=== PATIENT | male | born 1960 | race Two or more races ===

== ENCOUNTER 2018-03-09 11:45 | Emergency (ER) | payer MEDICARE, MEDICAID ==
[~2018-03-09] VITALS: Ht 175.3 cm; Wt 74.0 kg
--- NOTE | 2018-03-09 11:55 | NUR ---
EKG 1149
[2018-03-09 12:35] LABS: BASOPHILS % (AUTO) 0.7 % (0-1); EOSINOPHILS # (AUTO) 0.2 X10'3 (0-0.9); EOSINOPHILS % (AUTO) 2.8 % (0-6); HEMATOCRIT 43.2 % (42.0-52.0); HEMOGLOBIN 14.3 g/dl (14.0-17.9); LYMPHOCYTES # (AUTO) 1.4 X10'3 (1.1-4.8); LYMPHOCYTES % (AUTO) 20.5 % (21-51); MEAN CORPUSCULAR HEMOGLOBIN 32.7 PG (27.0-31.0); MEAN CORPUSCULAR HGB CONC 33.2 % (33.0-36.5); MEAN CORPUSCULAR VOLUME 98.5 FL (78-98); MEAN PLATELET VOLUME 9.8 FL (7.4-10.4); MONOCYTES # (AUTO) 1.1 X10'3 (0-0.9); MONOCYTES % (AUTO) 15.4 % (2-12); NEUTROPHILS # (AUTO) 4.1 X10'3 (1.8-7.7); NEUTROPHILS % (AUTO) 60.6 % (42-75); PLATELET COUNT 148 X10'3 (140-440); RED BLOOD COUNT 4.38 X10'6 (4.70-6.10); WHITE BLOOD COUNT 6.9 X10'3 (4.5-11.0)
[2018-03-09 12:51] LABS: INR 1.1 INR; PARTIAL THROMBOPLASTIN TIME 30 SECONDS (22-32); PROTHROMBIN TIME 10.7 SECONDS (9.0-12.0)
[2018-03-09 13:05] LABS: ALANINE AMINOTRANSFERASE 28 U/L (12-78); ALBUMIN 2.8 G/DL (3.4-5.0); ALBUMIN/GLOBULIN RATIO 0.7 (1.1-1.5); ALKALINE PHOSPHATASE 91 IU/L (46-116); ANION GAP 6 (8-16); ASPARTATE AMINO TRANSFERASE 18 U/L (10-37); BILIRUBIN,TOTAL 0.3 MG/DL (0.1-1.0); BLOOD UREA NITROGEN 23 MG/DL (7-18); CALCIUM 9.1 MG/DL (8.5-10.1); CHLORIDE 104 MMOL/L (99-107); CREATININE 1.28 MG/DL (0.60-1.10); GLUCOSE 336 MG/DL (70-104); POTASSIUM 4.7 MMOL/L (3.5-5.1); SODIUM 139 MMOL/L (135-145); TOTAL CARBON DIOXIDE 29.2 MMOL/L (24-32); eGFR 58 ML/MIN
--- NOTE | 2018-03-09 13:19 | NUR ---
ASSUMED CARE OF PT FROM AISHA HENRY, PT IS RESTING QUIETLY ON GURNEY, RESP EVEN AND UNLABORED
[2018-03-09] MEDS ORDERED: PANT-47 PO (13:44)
--- NOTE | 2018-03-09 14:02 | NUR ---
REPORT GIVEN TO ELZA HENRY AT [facility], THEY WILL SEND A NON EMERGENCY SERVICES AMBULANCE DRIVER TO PICK PT UP, PT IS UNDER CONSERVATORSHIP AND RESIDED AT A HEALTH SYSTEM
[2018-03-09 14:27] VITALS: BP 119/80
== END 2018-03-09 14:33 | disposition home or self-care (01) ==
LOC: ER 11:46
DX: R10.13 Epigastric pain (principal); R07.9 Chest pain, unspecified; I10 Essential (primary) hypertension; E11.9 Type 2 diabetes mellitus without complications; F17.200 Nicotine dependence, unspecified, uncomplicated; Z88.0 Allergy status to penicillin; Z88.8 Allergy status to other drugs, medicaments and biological substances; Z79.899 Other long term (current) drug therapy
CPT/HCPCS: 36415; 71045; 80053; 84484; 85025; 85610; 85730; 99284

== ENCOUNTER 2021-02-14 14:58 | Emergency (ER) | payer MEDICARE, MEDICAID ==
[~2021-02-14] VITALS: Ht 182.9 cm; Wt 50.0 kg
[2021-02-14 14:58] VITALS: BP 114/74
[~2021-02-14 14:58] MED LIST: PANT-47 PO
[2021-02-14] MEDS ORDERED: normal saline 500ml IV soln 500 ML IV ONE (17:05)
--- NOTE | 2021-02-14 17:53 | NUR ---
STAFF MEMBER FROM [facility] CALLED FOR REPORT. INFORMED HER THAT I WAS PLACED ON HOLD FOR ALMOST 15 MIN, THE PHONE CALL WAS DISCONNECTED AND WHEN I ATTEMPTED TO CALL BACK THERE WAS NOT ANSWER. REPORT WAS GIVEN PER PROVIDER NOTES THAT PT SHOWED NO S/S OF ANYTHING BEING WRONG OTHER THAN HIS HYPERGLYCEMIA BY HIS VS UPON ARRIVAL. INFORMED THAT PT RECEIVED 2L NS PRIOR TO DC BACK TO [place]
== END 2021-02-14 17:05 ==
LOC: ER 14:58
DX: E11.65 Type 2 diabetes mellitus with hyperglycemia (principal); F20.9 Schizophrenia, unspecified; I10 Essential (primary) hypertension; Z88.0 Allergy status to penicillin; Z79.899 Other long term (current) drug therapy; Z88.8 Allergy status to other drugs, medicaments and biological substances
CPT/HCPCS: 99283; J7040